=== PATIENT | female | born 1940 | race Caucasian/White ===

== ENCOUNTER → 2025-03-18 11:41 | Outpatient (CLI) | payer MEDICARE, OTHER, SELFPAY ==
--- NOTE | 2025-03-18 12:24 | DI.MRI.S_ITS ---
PROCEDURE: MR LUMBAR SPINE WO CON INDICATIONS: Pain, hearing loss TECHNIQUE: Noncontrast sagittal T1 spin echo and T2 fast echo, sagittal STIR, and T2 fast spin echo through the lumbar spine. In cases with scoliosis, additional coronal T2 fast spin echo may be performed. COMPARISON: None. FINDINGS: Image quality: This examination is limited by involuntary motion artifact. Alignment and Curvature: There is ckst-ys-erekcrkz levoconvex scoliosis. There is minimal retrolisthesis seen at L2-L3 and L3-L4. Minimal anterolisthesis is seen at L4-L5. Minimal retrolisthesis is seen at L5-S1. Bone Marrow: Marrow is of normal overall signal. No acute vertebral body compression fractures. Spinal Cord: Conus medullaris terminates at the L1 level. Visualized cord demonstrates normal signal and size. Paraspinous Soft Tissues: No paravertebral masses. T12-L1: Normal appearance. L1-L2: Normal appearance. L2-L3: At least moderate loss of disc height and disc signal can be seen. Reactive marrow endplate changes are seen which are hypointense on T1-weighted imaging and hyperintense on T2 weighted imaging, which is most consistent with edema (Modic type I changes). At least moderate disc bulge is seen which is eccentric to the right. There is a superimposed central disc osteophyte protrusion. Mild to moderate facet hypertrophy is seen. There is rkwz-al-phtwigng left-sided and at least moderate right-sided neural narrowing. Imay-gd-btonctkl central canal narrowing is seen. L3-L4: Moderate loss of disc height and disc signal can be seen on the right- side. Reactive marrow endplate changes are seen, which are hyperintense on T1-weighted and T2-weighted imaging and most consistent with fatty metaplasia (Modic type II changes). Moderate generalized disc bulge is seen. To moderate facet hypertrophy is seen. Moderate bilateral neural foraminal narrowing is seen. Moderate central canal narrowing is seen. L4-L5: Moderate loss of disc height is seen. Loss of disc signal is seen. Moderate generalized disc bulge is seen. There is a superimposed central disc protrusion. Moderate to prominent facet hypertrophy is seen. Moderate bilateral neural narrowing can be seen, right worse than left. Moderate central canal narrowing is seen. L5-S1: At least moderate loss of disc height and disc signal can be seen. Moderate disc bulge is seen which is eccentric to the left. Mild to moderate facet hypertrophy is seen. There is ggzl-so-fqresusf right-sided and moderate left-sided neural narrowing. Mild central canal narrowing is seen. 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 Ywfp-xp-ebmktdhu levoconvex scoliosis is seen. Dictated by: Javed Gilbert M.D. on 03/18/2025 at 12:50 Approved by: Javed Gilbert M.D. on 03/18/2025 at 12:53
--- NOTE | 2025-03-18 12:24 | DI.MRI.S_ITS ---
PROCEDURE: MR HIP RT WO CON INDICATIONS: Pain,hearing loss TECHNIQUE: Noncontrast coronal T1 spin echo and STIR through the bony pelvis. Coronal and axial T2 fast spin echo with fat saturation, sagittal T1 spin echo, and oblique axial T2 fast spin echo with fat saturation through the hip. COMPARISON: None. FINDINGS: Bilateral total hip arthroplasty. Susceptibility artifact from hardware obscures portions of adjacent anatomy. Given this limitation the following of the observed: Complete tear of gluteus minimus tendon from the insertion. Partial tear of gluteus medius from the insertion. Fluid layering posterior to the greater trochanter which may be within the bursa. Small partial tear of common hamstring tendon origin. No bone marrow edema, osseous erosion or fracture identified. No visible pseudotumor. No lymphadenopathy. No free intraperitoneal fluid. Degenerative changes in the lower lumbar spine. IMPRESSION: Complete tear gluteus minimus tendon. Partial tear gluteus medius tendon. Thin fluid collection posterior to the proximal femur, possibly within the trochanteric bursa. Dictated by: Bob Samuels M.D. on 03/18/2025 at 14:10 Approved by: Bob Samuels M.D. on 03/18/2025 at 14:18
--- NOTE | 2025-03-18 13:13 | DI.MRI.S_ITS ---
PROCEDURE: MR BRAIN (IAC) WWO CON INDICATIONS: Pain,hearing loss TECHNIQUE: Noncontrast sagittal T1 spin echo, axial FLAIR, axial gradient echo, axial diffusion and ADC through the brain. Axial thin-slice 3D CISS, coronal TruFISP, axial T1 spin echo with fat saturation through the internal auditory canals. After the administration of contrast, thin slice axial and coronal T1 spin echo with fat saturation through the internal auditory canals, and axial and coronal and sagittal T1 spin echo with fat saturation through the brain. COMPARISON: None. FINDINGS: Image quality: Excellent. Cerebellopontine angles: No cerebellopontine angle masses. Inner ear structures appear normally formed. No suspicious enhancement in the internal auditory canal or along the course of the 7th cranial nerve. CSF spaces: Ventricles are normal in size and shape. No extra-axial fluid collections. Basal cisterns are patent. Brain: No intracranial bleeds or mass effects. Fishman-white matter interface is intact. No abnormal intracranial enhancement. Diffusion weighted images demonstrate no acute ischemic insults. Brainstem appears normal. Normal intravascular flow voids are present. Focus of susceptibility artifact along the anterior left cerebral peduncle (12/29). Skull and face: Calvarial marrow signal is normal. Orbits appear normal. Sinuses: Sinuses and mastoids are clear. IMPRESSION: No cause for patient's symptoms is identified. Normal appearance of the internal auditory canals and cerebellopontine angles. No acute intracranial abnormalities or abnormal intracranial enhancement. Age-related global volume loss and chronic microvascular ischemic changes are present. Focus of susceptibility artifact is seen along the anterior left cerebral peduncle of uncertain etiology, possibly within the cistern. No definite abnormal enhancement is appreciated. Dictated by: Kobe Silverman M.D. on 03/18/2025 at 15:12 Approved by: Kobe Silverman M.D. on 03/18/2025 at 15:21
== END ==
PROVIDERS: PCP Nurse Practitioner Family; Referring Provider Nurse Practitioner Family; Visit Provider Nurse Practitioner Family
DX: H91.8X3 Other specified hearing loss, bilateral (principal); H90.3 Sensorineural hearing loss, bilateral; M47.27 Other spondylosis with radiculopathy, lumbosacral region; M47.26 Other spondylosis with radiculopathy, lumbar region; M51.16 Intervertebral disc disorders with radiculopathy, lumbar region; M51.17 Intervertebral disc disorders with radiculopathy, lumbosacral region; M41.9 Scoliosis, unspecified; S76.011A Strain of muscle, fascia and tendon of right hip, initial encounter; M25.551 Pain in right hip; G89.29 Other chronic pain; Z96.643 Presence of artificial hip joint, bilateral
CPT/HCPCS: 70553; 72148; 73721; A9579